=== PATIENT | male | born 1995 | race African-American/Black ===

== ENCOUNTER 2018-03-03 22:33 | Emergency (ER) | payer OTHER, MEDICAID ==
[~2018-03-03] VITALS: Ht 175.3 cm; Wt 88.0 kg
[2018-03-04 00:27] VITALS: BP 122/70
[2018-03-04] MEDS ORDERED: IBUPROFEN 600MG TABLET PO ONE (01:45)
== END 2018-03-04 02:49 | disposition home or self-care (01) ==
LOC: ER 22:33
DX: J06.9 Acute upper respiratory infection, unspecified (principal)
CPT/HCPCS: 71045; 99283